=== PATIENT | male | born 1980 | race Caucasian/White ===

== ENCOUNTER 2018-04-29 18:57 | Emergency (ER) | payer OTHER ==
[~2018-04-29] VITALS: Wt 99.8 kg
[2018-04-29] MEDS ORDERED: PREDNISONE50 MG PO (19:41)
[2018-04-29] MEDS ORDERED: IBU800 MG PO (19:41)
[2018-04-29] MEDS ORDERED: CYCLOBENZAPRINE10 MG PO (19:41)
== END 2018-04-29 19:50 | disposition home or self-care (01) ==
LOC: ED 18:57
DX: M54.5 Low back pain (principal)